=== PATIENT | male | born 1990 ===

== ENCOUNTER 2021-07-25 11:23 | Emergency (ER) | payer OTHER ==
[~2021-07-25] VITALS: Ht 188 cm; Wt 73.9 kg
== END 2021-07-25 15:43 | disposition home or self-care (01) ==
LOC: ER 11:23 → EDSEX 13:30 → ER 15:43
DX: N39.0 Urinary tract infection, site not specified (principal); N23 Unspecified renal colic; N45.3 Epididymo-orchitis